=== PATIENT | male | born 1950 | race Asian ===

== ENCOUNTER 2023-06-18 07:36 | Emergency (ER) | payer OTHER ==
[~2023-06-18] VITALS: Ht 167.6 cm; Wt 59.5 kg
[2023-06-18 09:20] VITALS: BP 112/59; TEMP 98.7
[2023-06-18 09:22] VITALS: PULSE 104; RESP 16; O2SAT 95
[2023-06-18] MEDS ORDERED: TAMS-35 PO (09:46)
== END 2023-06-18 09:45 | disposition home or self-care (01) ==
LOC: ER 07:36
DX: R33.9 Retention of urine, unspecified (principal); N40.0 Benign prostatic hyperplasia without lower urinary tract symptoms
CPT/HCPCS: 51702; 81002